=== PATIENT | male | born 1955 | race Caucasian/White ===

== ENCOUNTER 2021-02-11 02:59 | Outpatient (CLI) | payer MEDICARE, SELFPAY ==
[2021-02-11 11:09] LABS: Source Nasal/Nares
[2021-02-11 18:31] LABS: COVID-19 PCR Negative (Negative)
== END 2021-02-11 03:00 | disposition home or self-care (01) ==
LOC: LBO 03:00
PROVIDERS: PCP Family Medicine; Visit Provider Otolaryngology
DX: Z20.822 Contact with and (suspected) exposure to COVID-19 (principal)
CPT/HCPCS: 87635

== ENCOUNTER 2021-02-14 07:29 | Day surgery (SDC) | payer MEDICARE, SELFPAY ==
[2021-02-14] VITALS (9 sets, daily range): BP systolic 96–127; BP diastolic 54–97; PULSE 52–71; RESP 11–19; TEMP 35.9–36.5; O2SAT 84–97; BMI 32.1
--- NOTE | 2021-02-14 08:03 | W.ANESPRE ---
General Info Date of Service Date Performed: 02/14/21 Height: 5 ft 11.5 in Weight: 105.8 kg Body Mass Index (BMI): 32.1 Surgical Procedure: Operation Date: 02/14/21 08:40 Proposed Procedures Side Surgeon p Functional Endoscopic Sinus Surgery w/ L Maxillary Antrostomy, L Middle Turbinate Reduction Left Eleazar Person MD Meds Allergies and Home Medications Allergies Allergy/AdvReac Type Severity Reaction Status Date / Time seasonal Allergy Uncoded 02/14/21 07:45 Home Medication Medication Instructions Recorded Unknown [No Known Home Meds] 12/06/20 Current Visit Medications: Current Medications Generic Name Dose Route Start Last Admin Trade Name Freq PRN Reason Stop Dose Admin Ringer's Solution 1,000 mls @ 80 mls/hr 02/14/21 06:00 IV 03/13/21 23:59 INFUSION TRACI IV Miscellaneous Supplies 1 each 02/14/21 06:00 Iv Access IV 03/13/21 23:59 DIRECTED TRACI Sodium Chloride 0 ml 02/14/21 06:00 Normal Saline Flush 10 Ml Syr IV 03/13/21 23:59 PRN PRN Sodium Chloride 0 ml 02/14/21 06:00 Normal Saline 10 Ml Vial IJ 03/13/21 23:59 DIRECTED PRN Sterile Water 0 ml 02/14/21 06:00 Water,Injection,Sterile 10 Ml Vial IJ 03/13/21 23:59 DIRECTED PRN PFSH Active Problems Active Problems: Problem Status Onset Code Chronic left maxillary sinusitis J32.0 Sinusitis, chronic J32.9 Sinus congestion R09.81 Medical History Medical History Actinic keratoses Degenerative joint disease Diverticulosis Hay fever Perineal mass, male Vitiligo Surgical History Surgical History History of bilateral hip arthroplasty History of surgery on left wrist Hx of colonoscopy Hx of inguinal hernia repair Tobacco Smoking/Tobacco Use Status: Never Alcohol Alcohol Intake: current Alcohol intake frequency: a few times a month Substance Use Substance use: Never Substance use type: does not use Vital Signs and Lab Results Vital Signs Most Recent Vital Signs in EMR: Most Recent Vital Signs Temp Pulse Resp BP Pulse Ox 36.5 C 59 L 16 127/80 96 02/14/21 07:49 02/14/21 07:49 02/14/21 07:49 02/14/21 07:49 02/14/21 07:49 Lab Results Blood Type / Crossmatch: No Data to Display Complete Blood Count: No Data to Display Complete Metabolic Panel: No Data to Display Liver Function Panel: No Data to Display Coagulation Panel: No Data to Display Cardiac Panel: No Data to Display Arterial Blood Gas: No Data to Display Venous Blood Gas: No Data to Display Pancreas Panel: No Data to Display Thyroid Panel: No Data to Display Infectious Disease: Coronavirus (COVID-19)(PCR) Negative (Negative) 02/11/21 09:07 02/11/21 Coronavirus 2019 Source Nasal/Nares 02/11/21 09:07 02/11/21 Blood Cultures: No Data to Display Toxicology Panel: No Data to Display Anesthesia Assessment and Plan Anesthesia History Personal History: No History of Anesthesia Complications Family History: No Family History of Anesthesia Complications Exercise Tolerance Exercise Tolerance: Metabolic Equivalents>4 Pertinent Negatives Pertinent Negatives: No Symptoms of GERD Cardiac & Pulmonary Exam Cardiac Exam: Normal S1/S2 Heart Sounds Pulmonary Exam: Clear Bilateral Breath Sounds Implantable Cardiac Device Does patient have a Pacemaker or an ICD?: No Airway Exam Known Difficult Airway: No Mallampati Class: 1 Mouth Opening: Normal (> 3cm) Thyromental Distance: Greater than 3 cm Neck Range of Motion: Full ROM Neck Circumference: Normal Teeth Condition: Normal Dentition ASA Classification ASA Score: ASA 2 Emergency Case?: No NPO Status NPO Status: NPO Clears >2 hours, Solids >8 hours Anesthesia Plan Resuscitation Status: Full Code Anesthesia Technique: General Anesthesia Airway Planned: Endotracheal Tube Monitors Used: Standard Monitors
[2021-02-14] MEDS: Lactated Ringers 1,000 ML 80 ML IV (08:15)
[2021-02-14] MEDS: Cocaine Nasal 4% 4 ML BTL (09:00)
[2021-02-14] MEDS: Normal Saline 100 ML 360 ML (09:04)
[2021-02-14] MEDS: Tranexamic Acid 1,000 MG/10 ML VIAL 1000 MG (09:04)
--- NOTE | 2021-02-14 09:49 | PDOC.DSDIS_ITS ---
Discharge Plan Disposition Patient Disposition: HOME Condition: Good Discharge Details Attending Provider: Eleazar Person Primary Care Provider: Bettina Benitez Home Meds and New Rx's Prescriptions: New amoxicillin-pot clavulanate [Augmentin] 875-125 mg tablet 1 tab PO BID 10 Days Qty: 20 RF: 0 Discharge Instructions Stand Alone Forms: [facility] Referrals: Eleazar Person MD [ [facility] STAFF PHYSICIAN] - (Please call for appointment in 2 weeks prior to patient's departure) Diet:: As Tolerated
--- NOTE | 2021-02-14 09:53 | ROE_ITS ---
Operative Note Operative Note DATE OF PROCEDURE: 02/14/21 PRE-OP DIAGNOSIS: Chronic left maxillary sinusitis POST-OP DIAGNOSIS: same PROCEDURE: FESS with left maxillary antrostomy and debridement SURGEON: Eleazar Person ANESTHESIA TYPE: General LMA/ETT Refer to Anesthesia Record ESTIMATED BLOOD LOSS: 100 PATHOLOGY: none sent COMPLICATIONS: None Patient was transported to: PACU Patient's condition: stable Indications: Patient with maxillary sinusitis, medically recalcitrant. CT scan showed obstruction of the ostiomeatal complex. Inflammation in the anterior ethmoids, and frontal recess were felt to be secondary to the inflammation within the maxillary sinus. Options were explained to the patient regarding further management. He elected to undergo the above procedure. Consent was obt ained prior to surgery. H&P was reviewed. Findings: Frontal recess appears free of disease. No purulent discharge from the frontal recess. Anterior ethmoid did not demonstrate any purulent discharge. Left maxillary antrum largely obstructed, with medialization of the uncinate process. No polyposis. No fungal mycetoma. No obvious masses. Procedure Description: After obtaining an adequate level of general endotracheal anesthesia the patient was positioned in a supine position and prepped and dr aped in appropriate fashion. 1% lidocaine with 1/100,000 epinephrine was injected into the left inferior turbinate, left septum, and left middle turbinate as well as the uncinate process. Cocaine soaked nasal pledgets were placed in the left nasal cavity and left for 5 minutes at which point in time they removed, and a 0 degree scope used for visualization. The uncinate process was identified, and the frontal recess was examined. Using the StraightShot microdebrider with a 3.4 mm Tricut 0 degree blade, inferior uncinectomy was performed on the left with wide maxillary antrostomy. The maxillary sinus was debrided of purulent material as well as hypertrophic tissues around the maxillary antra, and then irrigated with copious amounts of saline. Following this, an 8 cm Merisel pack was placed in the left nasal cavity and the patient was awakened and extubated at which point in time the pack was removed. The patient tolerated the procedure well. I was present throughout the entire case.
--- NOTE | 2021-02-14 10:29 | W.ANESPOSTOP ---
Postoperative Evaluation Date, Time and Location Date Performed: 02/14/21 Time Performed: 10:29 Patient Location: PACU Vital Signs Most Recent Imported Vital Signs: Most Recent Vital Signs Temp Pulse Resp BP Pulse Ox 36.1 C L 52 L 14 110/70 97 02/14/21 09:50 02/14/21 10:23 02/14/21 10:23 02/14/21 10:23 02/14/21 10:23 Pain Score Most Recent Pain Score: Most Recent Pain Score Pain Level 0 02/14/21 10:23 Assessment Mental Status: Awake (Alert & Oriented to Patient Baseline) Airway and Respiratory Function: Patent airway with normal (patient baseline) respiratory exam Cardiovascular Function: Hemodynamically Stable Hydration Status: Adequately Hydrated Nausea & Vomiting: No Nausea or Vomiting Pain: Pt. Denies Any Pain Peripheral Nerve Block: Patient did not receive a nerve block
== END 2021-02-14 11:30 | disposition home or self-care (01) ==
PROVIDERS: PCP Family Medicine; Visit Provider Otolaryngology
PROC: (CPT 31267; principal; 2021-02-14 08:30)
DX: J32.9 Chronic sinusitis, unspecified (principal); J32.0 Chronic maxillary sinusitis
CPT/HCPCS: 31267; J0690; J1100; J1885; J2405

== ENCOUNTER 2022-04-10 19:32 | Outpatient (REF) | payer MEDICARE, SELFPAY ==
--- OUTSIDE RECORDS SUMMARY | 2022-04-10 19:35 | XMS_ITS ---
Author Name HayleyIsac presleyude Address [address] [place] [address] Organization [employer] Address [address] [place] [address] Care Team Providers Care Sports Medicine Coordinator Name Role Phone Alyson Rose Unavailable [phone] PROBLEMS Type Condition ICD9-CM Code [id number] Code Onset Dates Condition Status SNOMED Code Problem Vitiligo L80 Active 97698377 Problem Hx of colonic polyp Z86.010 Active 604333929 Problem Osteoarthritis of both knees M17.0 Active [id number] 8 Problem Degenerative joint disease M19.90 Active 106970839 ALLERGIES No Known Allergies ENCOUNTERS Encounter Location Date Diagnosis SUR[address]ERY [address] [place] [address] Mar, SURGERY [address] [place] [address] Mar, [facility] [address] [place] [address] Mar, SCREENING FOR COLON CANCER Z12.11 ; Encounter for other specified special examinations Z01.89 ; Encounter for screening for other disorder Z13.89 and Hx of colonic polyp Z86.010 [facility] [address] [place] [address] Dec, IMMUNIZATIONS No Known Immunizations SOCIAL HISTORY Qualifiers Date Never Smoker REASON FOR REFERRAL FUNCTIONAL STATUS PLAN OF CARE VITAL SIGNS Height 71.5 in 2019-03-10 Weight 230.0 lbs 2019-03-10 BMI 31.63 kg/m2 2019-03-10 Temperature 98.6 degrees Fahrenheit Heart Rate 69 /min 2019-03-10 Respiratory Rate 16 /min 2019-03-10 Oximetry 94 % 2019-03-10 Blood pressure systolic 120 mm Hg Blood pressure diastolic 82 mm Hg 2019-03 MEDICATIONS Unknown Medications PROCEDURES Procedure Date Ordered Result Body Site COLONOSCOPY (in procedures) 2007-11-27 N/A SBIRT screening 2019-03-10 Negative COLONOSCOPY (in procedures) 2019-03-10 N/A RESULTS No Results REASON FOR VISIT colonoscopy/MAC, colonoscopy, colonoscopy, referred for colonoscopy , update chart Insurance Providers Health Insurance Type Health Plan Insurance Address Health Plan Insurance Phone Health Plan Insurance Name Health Plan Coverage Dates Member ID Patient Relationship to Subscriber Patient Address Patient Phone Patient Name Patient Date of Subscriber ID Subscriber Name Subscriber Date of Group No SEL[employer] INS [address] [facility] [id number] [employer] self [place] [id number] [place] [address] [place] [id number] [facility] BECKY CHARLES [id number]
== END 2022-04-10 19:33 | disposition home or self-care (01) ==
LOC: LBN 19:32
PROVIDERS: PCP Family Medicine; Visit Provider Otolaryngology
DX: J32.0 Chronic maxillary sinusitis (principal)
CPT/HCPCS: 87077; 87070; 87186